=== PATIENT | male | born 1970 | race Caucasian/White ===

== ENCOUNTER 2022-03-15 12:17 | Emergency (ER) | payer MEDICAID ==
[2022-03-15] MEDS ORDERED: Sodium Chloride 0.9% 10 ML Syringe FLUSH PRN (12:37)
[2022-03-15] MEDS ORDERED: Ondansetron 4 MG/2 ML SDV IVPUSH ONE (12:37)
[2022-03-15] MEDS ORDERED: Pantoprazole 40 MG Vial IVPUSH ONE (12:39)
[2022-03-15] MEDS ORDERED: Sodium Chloride 0.9% 1,000 ML IV SCH (12:45)
[2022-03-15] MEDS ORDERED: Iopamidol 612 MG/ML 100 ML Bottle IVPUSH ONE (12:46)
[2022-03-15] MEDS: Sodium Chloride 0.9% 10 ML Syringe FLUSH PRN ×2 (12:52→13:19)
[2022-03-15] MEDS ORDERED: LORazepam 2 MG/ML SDV IVPUSH ONE (12:53)
[2022-03-15 14:03] LABS: ESTIMATED GFR 113 mL/min (>60)
== END 2022-03-15 16:18 | disposition home or self-care (01) ==
LOC: JD.ED 12:17
DX: F10.920 Alcohol use, unspecified with intoxication, uncomplicated (principal); S22.42XA Multiple fractures of ribs, left side, initial encounter for closed fracture; K76.89 Other specified diseases of liver; Z79.899 Other long term (current) drug therapy; X58.XXXA Exposure to other specified factors, initial encounter
CPT/HCPCS: 36415; 71045; 74177; 80053; 80306; 80307; 83690; 84484; 85025; 85610; 85730; 93005; 96361; 96374; 96375; 99285; C9113; J2060; J2405; J3490; J7030; Q9967

== ENCOUNTER 2022-05-28 04:24 | Emergency (ER) | payer MEDICAID ==
[2022-05-28] MEDS ORDERED: HYDROmorphone 0.5 MG/0.5 ML Syringe IVPUSH ONE ×2 (05:23→06:30)
[2022-05-28] MEDS ORDERED: Sodium Chloride 0.9% 1,000 ML IV SCH (05:30)
[2022-05-28] MEDS ORDERED: Magnesium Sulfate/Water 4 GM in Premix Bag 1 BAG IV ONE (06:17)
[2022-05-28] MEDS ORDERED: Calcium Gluconate 10% 1 GM/10 ML SDV IVPUSH STA (06:17)
[2022-05-28] MEDS ORDERED: Orphenadrine 100 MG Tab.ER PO STA (06:31)
[2022-05-28] MEDS ORDERED: Iopamidol 755 Mg/ML 100 ML Bottle IVPUSH ONE ×2 (06:51→09:15)
[2022-05-28] MEDS ORDERED: Ondansetron 4 MG/2 ML SDV IVPUSH ONE (09:12)
[2022-05-28] MEDS ORDERED: Sodium Chloride 0.9% 45 ML IV SCH (09:15)
[2022-05-28] MEDS ORDERED: Sodium Chloride 0.9% 10 ML Syringe FLUSH PRN (09:15)
[2022-05-28] MEDS ORDERED: Metoclopramide 10 MG/2 ML SDV IVPUSH ONE (10:48)
[2022-05-28] MEDS ORDERED: LORazepam 2 MG/ML SDV IVPUSH ONE (14:29)
[2022-05-28] MEDS ORDERED: Sodium Chloride 0.9% 250 ML IV SCH (14:30)
[2022-05-28] MEDS ORDERED: Sodium Chloride 0.9% 250 ML ONE (14:35)
== END 2022-05-28 15:10 ==
LOC: JD.ED 04:24
DX: S22.42XA Multiple fractures of ribs, left side, initial encounter for closed fracture (principal); S30.0XXA Contusion of lower back and pelvis, initial encounter; K66.1 Hemoperitoneum; I10 Essential (primary) hypertension; F17.210 Nicotine dependence, cigarettes, uncomplicated; E66.9 Obesity, unspecified; Z68.38 Body mass index [BMI] 38.0-38.9, adult; Z79.899 Other long term (current) drug therapy; Z86.16 Personal history of COVID-19; W01.0XXA Fall on same level from slipping, tripping and stumbling without subsequent striking against object, initial encounter
CPT/HCPCS: 36415; 36430; 71045; 71275; 72100; 72170; 74175; 80048; 80053; 81001; 83735; 84484; 85018; 85025; 85379; 85610; 85730; 86850; 86900; 86901; 86922; 93005; 96361; 96365; 96366; 96375; 96376; 99285; A9270; J0610; J1170; J2060; J2405; J2765; J3475; J7030; P9016; P9017; Q9967

== ENCOUNTER 2022-07-15 16:01 | Emergency (ER) | payer MEDICAID, OTHER | END 2022-07-15 16:40 | disposition home or self-care (01) | LOC: JD.ED 16:01 | DX: F10.120 Alcohol abuse with intoxication, uncomplicated (principal); I10 Essential (primary) hypertension; K21.9 Gastro-esophageal reflux disease without esophagitis; M10.9 Gout, unspecified; E66.9 Obesity, unspecified; Z68.41 Body mass index [BMI] 40.0-44.9, adult; Z79.899 Other long term (current) drug therapy | CPT/HCPCS: 99284 ==

== ENCOUNTER 2022-07-15 16:56 | Emergency (ER) | payer MEDICAID | END 2022-07-15 17:48 | disposition home or self-care (01) | LOC: JD.ED 16:56 | DX: S01.81XA Laceration without foreign body of other part of head, initial encounter (principal); F10.920 Alcohol use, unspecified with intoxication, uncomplicated; I10 Essential (primary) hypertension; K21.9 Gastro-esophageal reflux disease without esophagitis; M10.9 Gout, unspecified; E66.9 Obesity, unspecified; Z79.899 Other long term (current) drug therapy; W18.30XA Fall on same level, unspecified, initial encounter | CPT/HCPCS: 12011; 99282 ==

== ENCOUNTER 2022-07-15 23:55 | Emergency (ER) | payer MEDICAID | END 2022-07-16 02:05 | disposition home or self-care (01) | LOC: JD.ED 23:55 | DX: S30.0XXA Contusion of lower back and pelvis, initial encounter (principal); S20.219A Contusion of unspecified front wall of thorax, initial encounter; F10.920 Alcohol use, unspecified with intoxication, uncomplicated; E78.00 Pure hypercholesterolemia, unspecified; I10 Essential (primary) hypertension; K21.9 Gastro-esophageal reflux disease without esophagitis; E66.9 Obesity, unspecified; Z68.41 Body mass index [BMI] 40.0-44.9, adult; Z79.899 Other long term (current) drug therapy; Z86.16 Personal history of COVID-19; W06.XXXA Fall from bed, initial encounter | CPT/HCPCS: 36415; 72131; 72131-26; 80307; 99284 ==

== ENCOUNTER 2022-07-16 14:03 | Emergency (ER) | payer MEDICAID ==
[2022-07-16] MEDS ORDERED: Sodium Chloride 0.9% 10 ML Syringe FLUSH PRN (14:52)
[2022-07-16] MEDS ORDERED: Sodium Chloride 0.9% 1,000 ML IV SCH (15:00)
[2022-07-16 15:56] LABS: ESTIMATED GFR 112 mL/min (>60)
[2022-07-16] MEDS ORDERED: LORazepam 1 MG Tab PO ONE (16:57)
== END 2022-07-16 18:20 | disposition left against medical advice (07) ==
LOC: JD.ED 14:03
DX: F10.920 Alcohol use, unspecified with intoxication, uncomplicated (principal); E78.00 Pure hypercholesterolemia, unspecified; I10 Essential (primary) hypertension; K21.9 Gastro-esophageal reflux disease without esophagitis; F17.210 Nicotine dependence, cigarettes, uncomplicated; E66.9 Obesity, unspecified; Z68.30 Body mass index [BMI] 30.0-30.9, adult; Z79.899 Other long term (current) drug therapy; Z86.16 Personal history of COVID-19; Y90.1 Blood alcohol level of 20-39 mg/100 ml
CPT/HCPCS: 36415; 80053; 80306; 80307; 85025; 99284; A9270; J3490; J7030

== ENCOUNTER 2022-07-19 17:05 | Emergency (ER) | payer SELFPAY ==
[2022-07-19] MEDS ORDERED: HYDROmorphone 1 MG/ML Syringe IVPUSH ONE (19:51)
[2022-07-19] MEDS ORDERED: diphenhydrAMINE 50 MG/ML SDV IVPUSH ONE (19:51)
[2022-07-19] MEDS ORDERED: Sodium Chloride 0.9% 10 ML Syringe FLUSH PRN (19:51)
[2022-07-19] MEDS ORDERED: Metoclopramide 10 MG/2 ML SDV IVPUSH ONE (19:51)
== END 2022-07-19 21:49 | disposition home or self-care (01) ==
LOC: JD.ED 17:05
DX: S22.089A Unspecified fracture of T11-T12 vertebra, initial encounter for closed fracture (principal); M25.511 Pain in right shoulder; M25.512 Pain in left shoulder; I10 Essential (primary) hypertension; K21.9 Gastro-esophageal reflux disease without esophagitis; M10.9 Gout, unspecified; E66.9 Obesity, unspecified; Z68.41 Body mass index [BMI] 40.0-44.9, adult; Z79.899 Other long term (current) drug therapy; W01.0XXA Fall on same level from slipping, tripping and stumbling without subsequent striking against object, initial encounter; Y93.01 Activity, walking, marching and hiking; Y92.009 Unspecified place in unspecified non-institutional (private) residence as the place of occurrence of the external cause
CPT/HCPCS: 72131; 96374; 96375; 99284; J1170; J1200; J2765; J3490